=== PATIENT | male | born 1975 | race Caucasian/White ===

== ENCOUNTER → 2017-03-20 | Outpatient (CLI) | payer MEDICAID | LOC: OD 14:28 | PROVIDERS: ATTEND Family Medicine | DX: M79.672 Pain in left foot (principal) ==

== ENCOUNTER 2018-08-17 17:44 | Emergency (ER) | payer MEDICAID ==
[2018-08-17 17:56] VITALS: BP 127/81
--- NOTE | 2018-08-17 18:15 | ER Document Report ---
HPI - HPI Pain Level: 4 Notes: Patient is a 42-year-old male no significant past medical history who presents to the ED for a dog bite to his left posterior calf prior to arrival. Patient states that it was a neighbor's dog that was reported to have all of his vaccinations up-to-date. Patient is not aware of the specific breed. Patient states that the dog was not acting weird or ill at the time. Patient states that his last tetanus was 3 years ago. He is ambulatory without difficulties. No other concerns or complaints. Denies any headache, fever, URI, sore throat, chest pain, palpitations, syncope, cough, shortness of breath, wheeze, dyspnea, abdominal pain, nausea/vomiting/diarrhea, urinary retention, dysuria, hematuria , loss of control of bowel or bladder, numbness/tingling, muscle paralysis/ weakness, or rash. - ROS Systems Reviewed and Negative: Yes All other systems reviewed and negative Past Medical History - Social History Smoking Status: Current Every Day Smoker Family History: Reviewed & Not Pertinent - Past Medical History Cardiac Medical History: Reports: Hx Hypertension Denies: Hx Coronary Artery Disease, Hx Heart Attack Pulmonary Medical History: Reports: Hx Pneumonia Denies: Hx Asthma, Hx Bronchitis, Hx COPD Neurological Medical History: Reports: Hx Seizures - MANY YRS AGO. Denies: Hx Cerebrovascular Accident Musculoskeletal Medical History: Denies Hx Arthritis Past Surgical History: Reports: Hx Orthopedic Surgery - Immunizations Hx Diphtheria, Pertussis, Tetanus Vaccination: Yes Vertical Provider Document - CONSTITUTIONAL Agree With Documented VS: Yes Notes: PHYSICAL EXAMINATION: GENERAL: Well-appearing, well-nourished and in no acute distress. LUNGS: Breath sounds clear to auscultation bilaterally and equal. No wheezes rales or rhonchi. HEART: Regular rate and rhythm without murmurs, rubs, gallops. Musculoskeletal: Left leg: FROM to passive/active. Strength 5+/5. N/V intact distal. No bony tenderness. There are 2 small puncture wounds to the posterior left calf without active bleeding. No obvious foreign body. There is a small abrasion to the rt medial leg. Extremities: No cyanosis, clubbing, or edema b/l. Peripheral pulses 2+. Capillary refill less than 3 seconds. NEUROLOGICAL: Normal speech, normal gait. Normal sensory, motor exams PSYCH: Normal mood, normal affect. SKIN: See above - INFECTION CONTROL TRAVEL OUTSIDE OF THE [place] IN LAST 30 DAYS: No Course - Re-evaluation Re-evalutation: 08/17/18 18:11 Patient is an afebrile, well-hydrated, 42-year-old male who presents to the ED for a dog bite to the left posterior calf. Vitals are acceptable without any significant tachycardia, tachypnea, or hypoxia. PE is otherwise unremarkable for any neurovascular compromise, obvious tendon/ligament rupture, obvious fracture/dislocation, obvious foreign body, septic joint, compartment syndrome. Wounds were thoroughly irrigated and cleansed. Wound dressing was placed and wound instructions reviewed. No suture closure warranted at this time. Animal control papers filled out with assistance by the nurse. I did review risk and benefit of rabies vaccination with the patient who declines at this time. Advised patient that he should get the information from the speech therapist technician of the dog's immunization record and have him evaluated over the next 10 days. No labs or imaging warranted at this time. I will send him home with a prescription for Augmentin. Recheck with your PCM in 2-3 days. Return to the ED with any worsening/concerning symptoms otherwise as reviewed in discharge. Patient is in agreement. Tetanus up-to-date. - Vital Signs Vital signs: Temp Pulse Resp BP Pulse Ox 98.1 F 72 16 127/81 H 99 08/17/18 17:53 08/17/18 17:53 08/17/18 17:53 08/17/18 17:53 08/17/18 17:53 Discharge - Discharge Clinical Impression: Dog bite Qualifiers: Encounter type: initial encounter Qualified Code(s): W54.0XXA - Bitten by dog, initial encounter Condition: Stable Disposition: HOME, SELF-CARE Instructions: Animal Bites ([facility]), Augmentin ([facility]) Additional Instructions: Keep the skin clean Wash with soap and water Tylenol/ibuprofen if needed Triple antibiotic ointment daily Take medication as directed Monitor for any worsening symptoms Recheck with your PCM in 2-3 days Return to the ED with any worsening symptoms and/or development of fever, headache, chest pain, palpitations, syncope, shortness of breath, trouble breathing, abdominal pain, n/v/d, abscess, purulent discharge, red streaks, worsening swelling, or other worsening symptoms that are concerning to you. Prescriptions: Amox Tr/Potassium Clavulanate [Augmentin 663-125 Tablet] 1 tab PO BID 10 Days # 20 tablet Forms: Elevated Blood Pressure, Smoking Cessation Education Referrals: JANIYA COLLINS MD [Primary Care Provider] - 08/20/18 [facility] [Provider Group] - Follow up as needed
== END 2018-08-17 18:50 | disposition home or self-care (01) ==
LOC: ER 17:44
DX: S81.852A Open bite, left lower leg, initial encounter (principal); W54.0XXA Bitten by dog, initial encounter; S80.811A Abrasion, right lower leg, initial encounter; X58.XXXA Exposure to other specified factors, initial encounter; F17.200 Nicotine dependence, unspecified, uncomplicated; I10 Essential (primary) hypertension
CPT/HCPCS: 99283

== ENCOUNTER → 2019-04-27 | Outpatient (CLI) | payer MEDICAID ==
--- NOTE | 2019-04-27 13:47 | RADIOLOGY REPORT (SQ) ---
EXAM DESCRIPTION: WRIST RIGHT 3 VIEWS COMPLETED DATE/TIME: 04/27/2019 1:34 pm REASON FOR STUDY: RIGHT WRIST PAIN M25.531 PAIN IN RIGHT WRIST COMPARISON: None. NUMBER OF VIEWS: Three views. TECHNIQUE: AP, lateral, and oblique radiographic images acquired of the right wrist. LIMITATIONS: None. FINDINGS: MINERALIZATION: Normal. BONES: No acute fracture or dislocation. No worrisome bone lesions. Normal alignment. SOFT TISSUES: No soft tissue swelling. No foreign body. OTHER: No other significant finding. IMPRESSION: Normal right wrist TECHNICAL DOCUMENTATION: JOB ID: [id number] 2010 [employer]- All Rights Reserved Reading location - IP/workstation name: [email or web address]
== END ==
LOC: RAD 13:13
PROVIDERS: ATTEND Nurse Practitioner Acute Care
DX: M25.531 Pain in right wrist (principal)

== ENCOUNTER → 2020-04-03 | Outpatient (CLI) | payer MEDICAID ==
--- NOTE | 2020-04-03 11:27 | RADIOLOGY REPORT (SQ) ---
EXAM DESCRIPTION: WRIST RIGHT 3 VIEWS IMAGES COMPLETED DATE/TIME: 04/03/2020 11:14 am REASON FOR STUDY: SWELLING OF RT WRIST M25.431 EFFUSION, RIGHT WRIST COMPARISON: PA, oblique, and lateral views of the right wrist from 04/27/2019. NUMBER OF VIEWS: Three views. TECHNIQUE: AP, lateral, and oblique radiographic images acquired of the right wrist. LIMITATIONS: None. FINDINGS: MINERALIZATION: Normal. BONES: The normal carpal alignment is preserved. There is no fracture. SOFT TISSUES: No soft tissue swelling, chondrocalcinosis or radiopaque foreign body. OTHER: No other finding. IMPRESSION: No acute osseous abnormality of the right wrist. TECHNICAL DOCUMENTATION: JOB ID: [id number] 2010 [employer]- All Rights Reserved Reading location - IP/workstation name: [email or web address]
== END ==
LOC: RAD 09:31
PROVIDERS: ATTEND Nurse Practitioner Family
DX: M25.431 Effusion, right wrist (principal)